=== PATIENT | male | born 2000 | race Caucasian/White ===

== ENCOUNTER → 2021-05-14 | Outpatient (CLI) | payer SELFPAY ==
--- NOTE | 2021-05-14 17:10 | Diagnostic Imaging Report ---
INDICATION: Tractor ran over back of foot, hyperextended toes with crushing injury to the foot into the ground. Diffuse pain. TECHNIQUE: 3 views of the right foot. CORRELATION STUDY: None. FINDINGS: There is minimal cortical irregularity at the medial base of the first distal phalanx. Given history, suspect for small avulsion-type fracture. This includes the medial aspect of the interphalangeal joint. There is a cortical defect with cortical thickening along the proximal lateral fifth metatarsal. Suspect likely stress-type injury with reparative change. IMPRESSION: 1. Small articular-based likely avulsion fracture at the medial first distal phalanx. 2. Findings suspect for stress-type fracture involving the proximal fifth metatarsal. Dictated by: Dictated on workstation # [id number]
== END ==
LOC: ORTHO 14:04
PROVIDERS: ATTEND Orthopaedic Surgery
DX: S97.81XA Crushing injury of right foot, initial encounter (principal); W30.89XA Contact with other specified agricultural machinery, initial encounter
CPT/HCPCS: 73630; G0463; 99202